=== PATIENT | male | born 1995 | race Caucasian/White ===

== ENCOUNTER → 2018-02-08 | Outpatient (CLI) | payer OTHER | LOC: BMCIMAGING 10:14 | PROVIDERS: ATTEND Family Medicine | DX: S69.92XA Unspecified injury of left wrist, hand and finger(s), initial encounter (principal); Y93.9 Activity, unspecified ==

== ENCOUNTER 2018-04-26 23:50 | Emergency (ER) | payer SELFPAY ==
[2018-04-27] MEDS ORDERED: ACETAMINOPHEN 500 MG TAB PO ONE (00:17)
[2018-04-27] MEDS ORDERED: IBUPROFEN 800 MG TAB PO ONE (00:17)
--- NOTE | 2018-04-27 00:18 | EDPHY ---
H & P Stated Complaint: sore throat and fever Time Seen by Provider: 04/27/18 00:18 HPI/ROS: HPI CHIEF COMPLAINT: Fever, nausea, vomiting, sore throat. HISTORY OF PRESENT ILLNESS: 22-year-old male, otherwise healthy does have a history of asthma, chronic fungal rash, presents emergency room with sore throat , fever. The patient states that he started developing a sore throat approximately 2 weeks ago however went away however over the last 36 hr he has had progressively worsening sore throat, fever. T-max at home 102. He did take Tylenol Motrin earlier this evening around 7:00 a.m.. He arrives to the emergency room complaining of fever, sore throat and vomiting. No trouble breathing. Past Medical History: Denies medical history except for asthma and chronic fungal rash Past Surgical History: No recent surgery Social History: Denies drugs alcohol tobacco. Family History: Noncontributory ROS REVIEW OF SYSTEMS: 10 Systems were reviewed and negative with the exception of the elements mentioned in the history of present illness. Exam Constitutional nontoxic appearing, febrile at triage 38.7. triage nursing summary reviewed, vital signs reviewed, awake/alert. Eyes normal conjunctivae and sclera, EOMI, PERRLA. HENT posterior pharynx is erythematous, 3+ symmetrical tonsillar beds, exudate present, uvula midline, mild submandibular lymphadenopathy, otherwise unremarkable oropharynx exam, moist mucus membranes, no epistaxis, neck supple/ no meningismus, no raccoon eyes. Patient is not drooling he is able to handle his secretions. Respiratory no stridor, clear to auscultation bilaterally, normal breath sounds, no respiratory distress, no wheezing. Cardiovascular no murmur on exam rate normal, regular rhythm, no murmur, no edema, distal pulses normal. Gastrointestinal soft, non-tender, no rebound, no guarding, normal bowel sounds, no distension, no pulsatile mass. Genitourinary no CVA tenderness. Musculoskeletal no midline vertebral tenderness, full range of motion, no calf swelling, no tenderness of extremities, no meningismus, good pulses, neurovascularly intact. Skin chronic fungal rash diffusely. No particular purpura. Neurologic awake, alert and oriented x 3, AAOx3, moves all 4 extremities equally, motor intact, sensory intact, CN II-XII intact, normal cerebellar, normal vision, normal speech. Psychiatric normal mood/affect. Heme/Lymph/Immune submandibular lymphadenopathy mild. Differential Diagnosis: Includes but is not viral pharyngitis, strep pharyngitis, mono, influenza, dehydration, electrolyte disturbance, acute febrile illness Medical Decision Making: Plan for this patient treat his fever Tylenol Motrin, IV fluids 2 L normal saline for hydration, basic blood work, influenza, strep. Re-evaluate Re-evaluation: 0302: Patient re-evaluated this time resting comfortably no acute distress. He received 3 L of fluid here, Tylenol Motrin and Decadron he is feeling much better. The patient would like to go home. He is afebrile Heart rate is not tachycardic No stridor no trouble handling secretions no change in phonation. Clinically on exam he most likely has strep pharyngitis. Is strep test is still pending. He received Bicillin IM here. Return precautions discussed return emergency room if worsening fever, vomiting , not doing well. He understands and is comfortable this plan. He as well as his mom are eager for discharge. Source: Patient - Personal History Current Tetanus/Diphtheria Vaccine: Yes Current Tetanus Diphtheria and Acellular Pertussis (TDAP): Yes - Medical/Surgical History Hx Asthma: No Hx Chronic Respiratory Disease: No Hx Diabetes: No Hx Cardiac Disease: No Hx Renal Disease: No Hx Cirrhosis: No Hx Alcoholism: No Hx HIV/AIDS: No Hx Splenectomy or Spleen Trauma: No Other PMH: denies - Social History Smoking Status: Never smoked Constitutional: Initial Vital Signs Temperature (C) 38.7 C H 04/26/18 23:52 Heart Rate 104 H 04/26/18 23:52 Respiratory Rate 16 04/26/18 23:52 Blood Pressure 113/61 04/26/18 23:52 O2 Sat (%) 94 04/26/18 23:52 O2 Delivery Mode Room Air Allergies/Adverse Reactions: No Known Allergies Allergy (Unverified 04/26/18 23:55) Home Medications: Medication Instructions Recorded Adderall 10 MG (*) 04/26/18 Albuterol 04/26/18 Ativan 04/26/18 Dexamethasone [Decadron 4 MG (*)] 4 mg PO DAILY #4 tab 04/27/18 Ibuprofen [Motrin (*)] 800 mg PO Q6-8PRN #10 tab 04/27/18 Medical Decision Making - Data Points Laboratory Results: Laboratory Results 04/27/18 00:20 04/27/18 00:20 04/27/18 04/27/18 04/27/18 00:31 00:26 00:20 WBC RBC Hgb Hct MCV MCH MCHC RDW Plt Count MPV Neut % (Auto) Lymph % (Auto) Wake % (Auto) Eos % (Auto) Baso % (Auto) Nucleat RBC Rel Count Absolute Neuts (auto) Absolute Lymphs (auto) Absolute Monos (auto) Absolute Eos (auto) Absolute Basos (auto) Absolute Nucleated RBC Immature Gran % Immature Gran # RBC/WBC/PLT Morphology Platelet Estimate Sodium 137 mEq/L mEq/L (135-145) Potassium 4.2 mEq/L mEq/L (3.5-5.2) Chloride 105 mEq/L mEq/L (97-110) Carbon Dioxide 22 mEq/l mEq/l (22-31) Anion Gap 10 mEq/L mEq/L (6-14) BUN 11 mg/dL mg/dL (7-23) Creatinine 0.8 mg/dL mg/dL (0.7-1.3) Estimated GFR > 60 Glucose 102 mg/dL H mg/dL (70-100) Calcium 9.6 mg/dL mg/dL (8.5-10.4) Nasal Influenza A PCR NEGATIVE FOR FLU A (NEGATIVE) Nasal Influenza B PCR NEGATIVE FOR FLU B (NEGATIVE) Group A Strep DNA Pending 04/27/18 00:20 WBC 10.99 10^3/uL H 10^3/uL (3.80-9.50) RBC 5.17 10^6/uL 10^6/uL (4.40-6.38) Hgb 15.9 g/dL g/dL (13.7-17.5) Hct 44.5 % % (40.0-51.0) MCV 86.1 fL fL (81.5-99.8) MCH 30.8 pg pg (27.9-34.1) MCHC 35.7 g/dL g/dL (32.4-36.7) RDW 11.6 % % (11.5-15.2) Plt Count 195 10^3/uL 10^3/uL (150-400) MPV 10.5 fL fL (8.7-11.7) Neut % (Auto) 68.9 % % (39.3-74.2) Lymph % (Auto) 15.1 % % (15.0-45.0) Wake % (Auto) 15.3 % H % (4.5-13.0) Eos % (Auto) 0.1 % L % (0.6-7.6) Baso % (Auto) 0.4 % % (0.3-1.7) Nucleat RBC Rel Count 0.0 % % (0.0-0.2) Absolute Neuts (auto) 7.57 10^3/uL H 10^3/uL (1.70-6.50) Absolute Lymphs (auto) 1.66 10^3/uL 10^3/uL (1.00-3.00) Absolute Monos (auto) 1.68 10^3/uL H 10^3/uL (0.30-0.80) Absolute Eos (auto) 0.01 10^3/uL L 10^3/uL (0.03-0.40) Absolute Basos (auto) 0.04 10^3/uL 10^3/uL (0.02-0.10) Absolute Nucleated RBC 0.00 10^3/uL 10^3/uL (0-0.01) Immature Gran % 0.2 % % (0.0-1.1) Immature Gran # 0.02 10^3/uL 10^3/uL (0.00-0.10) RBC/WBC/PLT Morphology TNP Platelet Estimate TNP Sodium Potassium Chloride Carbon Dioxide Anion Gap BUN Creatinine Estimated GFR Glucose Calcium Nasal Influenza A PCR Nasal Influenza B PCR Group A Strep DNA Medications Given: Discontinued Medications Acetaminophen (Tylenol) 1,000 mg PO EDNOW ONE Stop: 04/27/18 00:18 Last Admin: 04/27/18 00:21 Dose: 1,000 mg Dexamethasone (Decadron Injection) 10 mg IVP EDNOW ONE Stop: 04/27/18 00:24 Last Admin: 04/27/18 00:33 Dose: 10 mg Sodium Chloride (Ns) 2,000 mls @ 0 mls/hr IV ONCE ONE PRN Reason: Wide Open Stop: 04/27/18 00:24 Last Admin: 04/27/18 00:33 Dose: 2,000 mls Sodium Chloride (Ns) 1,000 mls @ 0 mls/hr IV ONCE ONE; Wide Open PRN Reason: Protocol Stop: 04/27/18 01:57 Last Admin: 04/27/18 01:57 Dose: 1,000 mls Ibuprofen (Motrin) 800 mg PO EDNOW ONE Stop: 04/27/18 00:18 Last Admin: 04/27/18 00:21 Dose: 800 mg Ketorolac Tromethamine (Toradol) 15 mg IVP EDNOW ONE Stop: 04/27/18 01:52 Last Admin: 04/27/18 01:57 Dose: 15 mg Penicillin G Benzathine (Bicillin L-A) 1,200,000 unit IM EDNOW ONE PRN Reason: Protocol Stop: 04/27/18 02:00 Last Admin: 04/27/18 02:18 Dose: 1,200,000 unit Departure - Departure Disposition: Home, Routine, Self-Care Clinical Impression: Acute pharyngitis Qualifiers: Pharyngitis/tonsillitis etiology: unspecified etiology Qualified Code(s): J02.9 - Acute pharyngitis, unspecified Condition: Good Instructions: Pharyngitis (ED), Strep Throat (ED) Additional Instructions: 1. Make sure to drink lots of fluids stay well-hydrated 2. Return emergency room if worsening symptoms high fever trouble swallowing worsening pain 3. You received a dose of antibiotics here in the emergency room for strep pharyngitis. 4. Decadron for swelling. 5. Recommend taking Tylenol and/or Motrin alternating. Referrals: NONE *PRIMARY CARE P,. [Primary Care Provider] - As per Instructions Prescriptions: Dexamethasone [Decadron 4 MG (*)] 4 mg PO DAILY #4 tab Ibuprofen [Motrin (*)] 800 mg PO Q6-8PRN #10 tab
[2018-04-27] MEDS ORDERED: DEXAMETHASONE 10 MG/ML VIAL IVP ONE (00:23)
[2018-04-27] MEDS ORDERED: NS 2,000 ML IV ONE (00:23)
[2018-04-27 00:53] LABS: PLATELET COUNT 195 10^3/uL (150-400)
[2018-04-27] MEDS ORDERED: KETOROLAC 15 MG/1 ML SDV IVP ONE (01:51)
[2018-04-27] MEDS ORDERED: NS 1,000 ML IV ONE (01:56)
[2018-04-27] MEDS ORDERED: BICILLIN L-A 1200000 UNIT/2 ML SYRINGE IM ONE (01:59)
[2018-04-27 02:27] VITALS: BP 130/58
== END 2018-04-27 03:31 | disposition home or self-care (01) ==
DX: J02.9 Acute pharyngitis, unspecified (principal); R11.2 Nausea with vomiting, unspecified; E86.9 Volume depletion, unspecified; J45.909 Unspecified asthma, uncomplicated
CPT/HCPCS: 96374; J0561; J1100; J1885

== ENCOUNTER 2018-05-20 23:19 | Emergency (ER) | payer BC, OTHER ==
[2018-05-20 23:32] VITALS: BP 141/82
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
== END 2018-05-21 00:10 | disposition home or self-care (01) ==
DX: S39.94XA Unspecified injury of external genitals, initial encounter (principal); X58.XXXA Exposure to other specified factors, initial encounter; Y92.9 Unspecified place or not applicable; Y99.9 Unspecified external cause status; Y93.9 Activity, unspecified